=== PATIENT | male | born 1930 | race Caucasian/White ===

== ENCOUNTER 2018-12-03 15:20 | Emergency (ER) | payer MEDICARE, OTHER ==
[~2018-12-03] VITALS: Ht 162.6 cm; Wt 64.9 kg
[~2018-12-03 15:20] MED LIST: ASPI81CH PO; ATEN50; CLOP75 PO; DILTIAZEM 24HR240 M1 PO; FISH1000 PO; HYDACE5 PO; METO50; RISE5 PO; SPIHYD; ZESTRIL40 MG PO
[2018-12-03 16:03] LABS: BASOPHILS ABSOLUTE AUTO 0.03 K/mm3 (0.00-0.23); BASOPHILS PERCENT AUTO 0 % (0-2); EOSINOPHILS ABSOLUTE AUTO 0.06 K/mm3 (0.00-0.68); EOSINOPHILS PERCENT AUTO 1 % (0-6); Hematocrit 35.1 % (37.0-53.0); Hemoglobin 11.5 g/dL (13.5-17.5); IMMATURE GRAN ABSOLUTE AUTO 0.03 K/mm3 (0.00-0.10); IMMATURE GRAN PERCENT AUTO 0 % (0-1); LYMPHOCYTES ABSOLUTE AUTO 1.42 K/mm3 (0.84-5.20); LYMPHOCYTES PERCENT AUTO 16 % (21-46); MONOCYTES PERCENT AUTO 10 % (4-13); Mean Corpuscular HGB 29.2 pg (26.0-34.0); Mean Corpuscular HGB Conc 32.8 g/dL (31.5-36.5); Mean Corpuscular Volume 89 fL (80-100); Mean Platelet Volume 9.9 fL (9.1-12.4); NEUTROPHILS ABSOLUTE AUTO 6.67 K/mm3 (1.96-9.15); NEUTROPHILS PERCENT AUTO 73 % (41-73); Platelet Count 250 K/mm3 (150-400); RDW Standard Deviation 42.6 fL (35.1-46.3); Red Blood Cell Count 3.94 M/mm3 (4.30-5.90); White Blood Cell Count 9.11 K/mm3 (4.00-11.30)
[2018-12-03 16:19] LABS: International Normalized Ratio 1.03; Prothrombin Time Results 10.9 Sec (9.7-11.5)
[2018-12-03 16:26] LABS: Alanine Aminotransfer (ALT/SGP 14 U/L (12-78); Albumin, Blood 3.4 g/dL (3.4-5.0); Albumin/Globulin Ratio 0.8 (0.8-1.8); Alk Phos 69 U/L (50-136); Anion Gap 7 mmol/L (6-16); Aspartate Aminotrans (AST/SGOT 14 U/L (12-37); Bilirubin, Total 0.4 mg/dL (0.1-1.0); Blood Urea Nitrogen 22 mg/dL (8-24); Bun/Creatinine Ratio 27.2 (12.0-20.0); CO2, Blood 27 mmol/L (21-32); Calcium, Blood 8.9 mg/dL (8.5-10.1); Chloride, Blood 103 mmol/L (98-108); Creatinine, Blood 0.81 mg/dL (0.60-1.20); Globulin, Blood 4.3 g/dL (2.2-4.0); Glomerular Filtration Rate >60 (60-); Glucose, Blood 144 mg/dL (70-99); Sodium, Blood 137 mmol/L (136-145); Total Protein, Blood 7.7 g/dL (6.4-8.2)
[2019-02-22] MEDS ORDERED: FURO40 PO (11:13)
== END 2018-12-03 17:52 | disposition home or self-care (01) ==
LOC: ER 15:20
PROVIDERS: Physician Assistant
DX: H26.9 Unspecified cataract (principal); Z88.0 Allergy status to penicillin; Z88.2 Allergy status to sulfonamides; Z79.899 Other long term (current) drug therapy; Z87.891 Personal history of nicotine dependence
CPT/HCPCS: 36415; 70450; 80053; 85025; 85610; 85730; 93005; 93010; 99284-25

== ENCOUNTER 2018-12-28 09:28 | Day surgery (SDC) | payer MEDICARE, OTHER ==
[~2018-12-28] VITALS: Ht 165.1 cm; Wt 68.7 kg
[2018-12-28] MEDS ORDERED: Aspirin EC81 MG PO (10:30)
--- NOTE | 2018-12-28 10:38 | NUR ---
12/28/18 [id number] Celeste Stanton T/O AND SITE CHECK DONE
--- NOTE | 2018-12-28 11:53 | NUR ---
12/28/18 1153 Juliane Rocha COPIES OF INSTRUCTIONS, GAUZE AND BACITRACIN GIVEN WITH INSTRUCTIONS FOR USE
[2019-02-22] MEDS ORDERED: FURO40 PO (11:13)
== END 2018-12-28 11:45 | disposition home or self-care (01) ==
LOC: ORSCSDS 09:28
PROVIDERS: Otolaryngology
PROC: 03BS0ZX Excision of Right Temporal Artery, Open Approach, Diagnostic (ICD-10-PCS; principal; 2018-12-28 11:45)
DX: M31.6 Other giant cell arteritis (principal); Z87.891 Personal history of nicotine dependence; Z79.82 Long term (current) use of aspirin
CPT/HCPCS: 88305; 88313; J1100; J2250; J3010; J7120

== ENCOUNTER 2019-01-28 12:41 | Inpatient (IN) | payer MEDICARE, OTHER ==
[~2019-01-28] VITALS: Ht 162.6 cm; Wt 67.0 kg
[~2019-01-28 12:41] MED LIST changes: +Aspirin EC81 MG PO
[2019-01-28] MEDS ORDERED: TIAZAC PO (13:29)
[2019-01-28 14:16] LABS: BASOPHILS ABSOLUTE AUTO 0.03 K/mm3 (0.00-0.23); BASOPHILS PERCENT AUTO 0 % (0-2); EOSINOPHILS ABSOLUTE AUTO 0.05 K/mm3 (0.00-0.68); EOSINOPHILS PERCENT AUTO 0 % (0-6); Hematocrit 38.4 % (37.0-53.0); Hemoglobin 12.6 g/dL (13.5-17.5); IMMATURE GRAN ABSOLUTE AUTO 0.22 K/mm3 (0.00-0.10); IMMATURE GRAN PERCENT AUTO 2 % (0-1); LYMPHOCYTES ABSOLUTE AUTO 0.81 K/mm3 (0.84-5.20); LYMPHOCYTES PERCENT AUTO 7 % (21-46); MONOCYTES ABSOLUTE AUTO 0.53 K/mm3 (0.16-1.47); MONOCYTES PERCENT AUTO 4 % (4-13); Mean Corpuscular HGB 29.6 pg (26.0-34.0); Mean Corpuscular HGB Conc 32.8 g/dL (31.5-36.5); Mean Corpuscular Volume 90 fL (80-100); Mean Platelet Volume 10.6 fL (9.1-12.4); NEUTROPHILS ABSOLUTE AUTO 10.65 K/mm3 (1.96-9.15); NEUTROPHILS PERCENT AUTO 87 % (41-73); Platelet Count 156 K/mm3 (150-400); RDW Coefficient Variation 18.4 % (11.7-14.2); Red Blood Cell Count 4.26 M/mm3 (4.30-5.90); White Blood Cell Count 12.29 K/mm3 (4.00-11.30)
[2019-01-28 14:43] LABS: Alanine Aminotransfer (ALT/SGP 37 U/L (12-78); Albumin, Blood 3.1 g/dL (3.4-5.0); Albumin/Globulin Ratio 0.9 (0.8-1.8); Alk Phos 47 U/L (50-136); Anion Gap 6 mmol/L (6-16); Aspartate Aminotrans (AST/SGOT 19 U/L (12-37); Bilirubin, Total 0.8 mg/dL (0.1-1.0); Blood Urea Nitrogen 28 mg/dL (8-24); Bun/Creatinine Ratio 40.1 (12.0-20.0); CO2, Blood 30 mmol/L (21-32); Calcium, Blood 8.7 mg/dL (8.5-10.1); Chloride, Blood 105 mmol/L (98-108); Globulin, Blood 3.5 g/dL (2.2-4.0); Glomerular Filtration Rate >60 (60-); Glucose, Blood 153 mg/dL (70-99); Potassium, Blood 3.6 mmol/L (3.5-5.5); Sodium, Blood 141 mmol/L (136-145); Total Protein, Blood 6.6 g/dL (6.4-8.2); Troponin I 0.026 ng/mL (0.000-0.040)
[2019-01-28] MEDS ORDERED: CLOP75 PO (15:10)
--- NOTE | 2019-01-28 16:46 | NUR ---
PT ARRIVED TO THE ROOM AT APPROXIMATELY [id number]. PT ALERT AND ORIENTED, WAS ABLE TO TRANSFER INDEPENDENTLY WITH SBA. O2 SATURATION WAS 86% UPON ARRIVAL TO THE FLOOR. O2 INCREASED TO 4L ON NC AND O2 SATURATION INCREASED TO 88%. PT PLACED ON 2L OXIMIZER AND O2 SATURATION IMPROVED TO 94%. PT SOB WITH ACTIVITY. WILL CONTINUE TO MONITOR.
[2019-01-28] MEDS ORDERED: PRED20 PO (17:47)
--- NOTE | 2019-01-28 18:24 | NUR ---
SHIFT SUMMARY NO CHANGES TO REPORT SINCE PT ARRIVED TO THE FLOOR. PT REMAINS ALERT AND ORIENTED. DENIES PAIN. INCREASED RR AND EFFORT WITH ACTIVITY. PT TOLERATING FOOD WELL. VSS. WILL MONITOR UNTIL REPORT TO ONCOMING RN.
[2019-01-28] MEDS ORDERED: DILTIAZEM 24HR300 M2 PO (18:28)
[2019-01-29 04:55] LABS: BASOPHILS ABSOLUTE AUTO 0.01 K/mm3 (0.00-0.23); BASOPHILS PERCENT AUTO 0 % (0-2); EOSINOPHILS ABSOLUTE AUTO 0.02 K/mm3 (0.00-0.68); EOSINOPHILS PERCENT AUTO 0 % (0-6); Hematocrit 33.1 % (37.0-53.0); Hemoglobin 11.2 g/dL (13.5-17.5); IMMATURE GRAN ABSOLUTE AUTO 0.17 K/mm3 (0.00-0.10); IMMATURE GRAN PERCENT AUTO 2 % (0-1); LYMPHOCYTES ABSOLUTE AUTO 0.38 K/mm3 (0.84-5.20); LYMPHOCYTES PERCENT AUTO 4 % (21-46); MONOCYTES ABSOLUTE AUTO 0.38 K/mm3 (0.16-1.47); MONOCYTES PERCENT AUTO 4 % (4-13); Mean Corpuscular HGB 29.7 pg (26.0-34.0); Mean Corpuscular HGB Conc 33.8 g/dL (31.5-36.5); Mean Corpuscular Volume 88 fL (80-100); Mean Platelet Volume 10.7 fL (9.1-12.4); NEUTROPHILS PERCENT AUTO 91 % (41-73); Platelet Count 139 K/mm3 (150-400); RDW Coefficient Variation 17.7 % (11.7-14.2); RDW Standard Deviation 56.3 fL (35.1-46.3); Red Blood Cell Count 3.77 M/mm3 (4.30-5.90); White Blood Cell Count 10.56 K/mm3 (4.00-11.30)
[2019-01-29 05:20] LABS: Anion Gap 7 mmol/L (6-16); Blood Urea Nitrogen 27 mg/dL (8-24); Bun/Creatinine Ratio 38.1 (12.0-20.0); CO2, Blood 32 mmol/L (21-32); Calcium, Blood 8.2 mg/dL (8.5-10.1); Chloride, Blood 101 mmol/L (98-108); Creatinine, Blood 0.71 mg/dL (0.60-1.20); Glomerular Filtration Rate >60 (60-); Glucose, Blood 144 mg/dL (70-99); Potassium, Blood 3.3 mmol/L (3.5-5.5); Sodium, Blood 140 mmol/L (136-145)
--- NOTE | 2019-01-29 07:57 | NUR ---
SUMMARY WITH THIS AM VS PT SATS ON 2 L 84 %.DENIED SOB PT WAS REPOSITIONED,ENC CDB, INCREASED O2 TO 3 L WITH SATS 889-99% ENC CONTINUED CDB.
--- NOTE | 2019-01-29 16:53 | NUR ---
Mr. Jalloh was pleasantly dismissive of pastoral care at this time. I will remain available.
--- NOTE | 2019-01-29 18:31 | NUR ---
SHIFT SUMMARY PT HAS BEEN SLEEPING A LOT OF THE SHIFT. PT TOOK A SHOWER TODAY AND PT TOLERATED WELL. THIS RN DECREASED PT'S OXYGEN FROM 3 LITERS THIS AM TO 1 LITER VIA NC. PT'S OXYGEN SATURATION HAS BEEN 92%. PT HAS HAD NO ACUTE CHANGES OR COMPLAINTS THIS SHIFT. CALL LIGHT IN REACH. WILL CONTINUE TO MONITOR AND REPORT TO ONCOMING RN. BED ALARM ON FOR FALL RISK SAFETY.
--- NOTE | 2019-01-30 02:51 | NUR ---
PT IS ALERT AND PLEASANT, HARD OF HEARING BUT ABLE TO COMMUNICATE. vOIDS GOOD AMT OF CLEAR YELLOW URINE AND WEARS PULLUPS FOR DRIBBLING. ON FLUID RESTRICTION FOR CHF. 2 GM SODIUM DIET WITH 100% TAKEN. HAS [facility] LIST. DENIES PAIN OR ACUTE DISTRESS.
[2019-01-30 05:10] LABS: Anion Gap 4 mmol/L (6-16); Blood Urea Nitrogen 40 mg/dL (8-24); Bun/Creatinine Ratio 48.3 (12.0-20.0); CO2, Blood 34 mmol/L (21-32); Calcium, Blood 8.3 mg/dL (8.5-10.1); Chloride, Blood 101 mmol/L (98-108); Creatinine, Blood 0.83 mg/dL (0.60-1.20); Glomerular Filtration Rate >60 (60-); Glucose, Blood 112 mg/dL (70-99); Magnesium, Blood 2.1 mg/dL (1.6-2.4); Potassium, Blood 3.4 mmol/L (3.5-5.5); Sodium, Blood 139 mmol/L (136-145)
[2019-01-30] MEDS ORDERED: ACET325 PO (11:36)
[2019-01-30] MEDS ORDERED: CARV6.25 PO (11:41)
[2019-01-30] MEDS ORDERED: DILT120 (11:42)
[2019-01-30] MEDS ORDERED: [UNRECOGNIZED DRUG - OTHER] (11:44)
[2019-01-30] MEDS ORDERED: Potassium20 MEQ/11 PO (11:47)
--- NOTE | 2019-01-30 15:58 | NUR ---
DISCHARGE DISCHARGE MEDICATIONS AND INSTRUCTIONS EXPLAINED TO PATIENT. HE STATED UNDERSTADING. LOW SODIUM DIET AND FLUID RESTRICTION EXPLAINED. FOLLOW UP WITH PCP AND CARDIOLOGY SCHEDULED. HOME OXYGEN PROVIDED BY [facility]. IV REMOVED WITHOUT DIFFICULTY. BELONGINGS WITH PATIENT. PATIENT TRANSFERED VIA WHEELCHAIR TO PRIVATE VEHICLE.
[2019-02-22] MEDS ORDERED: FURO40 PO (11:13)
== END 2019-01-30 15:10 | disposition home health service (06) | DRG 291 ==
LOC: ER 12:41 → MEDS 15:27 → ENPENDDIS 01-30 11:09 → MEDS 01-30 15:10
PROVIDERS: Emergency Medicine; ADMIT Internal Medicine
DX: I11.0 Hypertensive heart disease with heart failure (principal); J96.01 Acute respiratory failure with hypoxia; I50.43 Acute on chronic combined systolic (congestive) and diastolic (congestive) heart failure; E87.6 Hypokalemia; M31.6 Other giant cell arteritis; I25.10 Atherosclerotic heart disease of native coronary artery without angina pectoris; I35.0 Nonrheumatic aortic (valve) stenosis; H54.40 Blindness, one eye, unspecified eye; Z51.5 Encounter for palliative care; Z86.73 Personal history of transient ischemic attack (TIA), and cerebral infarction without residual deficits; Z95.1 Presence of aortocoronary bypass graft; Z88.5 Allergy status to narcotic agent; Z88.2 Allergy status to sulfonamides; Z87.891 Personal history of nicotine dependence; Z79.02 Long term (current) use of antithrombotics/antiplatelets; Z79.899 Other long term (current) drug therapy
CPT/HCPCS: 36415; 71046; 80048; 80053; 83735; 83880; 84484; 85025; 93005; 93010; 94761; 96374; 97161; 97165; 97530; 97535; 99285-25; J1650; J1940; J7512

== ENCOUNTER 2019-02-23 07:10 | Day surgery (SDC) | payer OTHER, MEDICARE ==
[~2019-02-23] VITALS: Ht 162.6 cm; Wt 64.0 kg
[~2019-02-23 07:10] MED LIST changes: +ACET325 PO; +CARV6.25 PO; +DILT120; +DILTIAZEM 24HR300 M2 PO; +FURO40 PO; +PRED20 PO; +Potassium20 MEQ/11 PO; +TIAZAC PO; +[UNRECOGNIZED DRUG - OTHER]
--- NOTE | 2019-02-23 11:04 | NUR ---
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 JAIME BANDAGE REPLACED. NO OOZING OR BLEEDING NOTED. SITE VISULIZED BY RECOVER ROOM RN. JULIA.
--- NOTE | 2019-02-23 12:09 | NUR ---
MEDICATION GIVEN PER ORDER FOR HYPERTENSION.
--- NOTE | 2019-02-23 12:36 | NUR ---
2 cc air removed from TR band. No bleeding at site. Additional 6 cc air removed. No bleeding.
--- NOTE | 2019-02-23 12:50 | NUR ---
TO BATHROOM. TOLERATED WELL. DRESSED FOR DISCHARGE.
--- NOTE | 2019-02-23 13:29 | NUR ---
TR BAN REMOVED. SIGHT DRESSED WITH CLOTH DOT. IMMOBILIZER PLACED. NO BLEEDING AT SITE.
--- NOTE | 2019-02-23 13:55 | NUR ---
IV REMOVED INTACT. 2X2 COBAN AND MANUAL PRESSURE HELD.
--- NOTE | 2019-02-23 14:08 | NUR ---
DISCHARGED HOME VIA WHEELCHAIR. DAUGHTER DRIVING. LEFT ARM SLING APPLIED.
--- NOTE | 2019-02-23 14:10 | NUR ---
CD OF PROCEDURE SENT WITH PT.
== END 2019-02-23 14:22 | disposition home or self-care (01) ==
LOC: MHTC 07:10
DX: Z01.810 Encounter for preprocedural cardiovascular examination (principal); I25.10 Atherosclerotic heart disease of native coronary artery without angina pectoris; I11.0 Hypertensive heart disease with heart failure; I50.9 Heart failure, unspecified; I27.20 Pulmonary hypertension, unspecified; Z87.891 Personal history of nicotine dependence; Z86.73 Personal history of transient ischemic attack (TIA), and cerebral infarction without residual deficits; Z88.5 Allergy status to narcotic agent; Z88.8 Allergy status to other drugs, medicaments and biological substances; Z88.2 Allergy status to sulfonamides; Z79.52 Long term (current) use of systemic steroids; Z79.899 Other long term (current) drug therapy
CPT/HCPCS: 76937; 93457; 99152; 99153; C1769; C1894; J1644; J2250; J3010; J7030; Q9967

== ENCOUNTER 2019-04-16 11:31 | Emergency (ER) | payer OTHER, MEDICARE ==
[~2019-04-16] VITALS: Ht 165.1 cm; Wt 68.0 kg
[~2019-04-16 11:31] MED LIST changes: -PRED20 PO; +Prednisone10 MG PO
[2019-04-16 12:39] LABS: BASOPHILS ABSOLUTE AUTO 0.01 K/mm3 (0.00-0.23); BASOPHILS PERCENT AUTO 0 % (0-2); EOSINOPHILS ABSOLUTE AUTO 0.02 K/mm3 (0.00-0.68); EOSINOPHILS PERCENT AUTO 0 % (0-6); Hematocrit 40.4 % (37.0-53.0); Hemoglobin 12.3 g/dL (13.5-17.5); IMMATURE GRAN ABSOLUTE AUTO 0.16 K/mm3 (0.00-0.10); IMMATURE GRAN PERCENT AUTO 2 % (0-1); LYMPHOCYTES ABSOLUTE AUTO 0.39 K/mm3 (0.84-5.20); LYMPHOCYTES PERCENT AUTO 4 % (21-46); MONOCYTES ABSOLUTE AUTO 0.34 K/mm3 (0.16-1.47); MONOCYTES PERCENT AUTO 4 % (4-13); Mean Corpuscular HGB 31.5 pg (26.0-34.0); Mean Corpuscular HGB Conc 30.4 g/dL (31.5-36.5); Mean Corpuscular Volume 104 fL (80-100); Mean Platelet Volume 11.5 fL (9.1-12.4); NEUTROPHILS ABSOLUTE AUTO 8.42 K/mm3 (1.96-9.15); NEUTROPHILS PERCENT AUTO 90 % (41-73); Platelet Count 131 K/mm3 (150-400); RDW Coefficient Variation 15.1 % (11.7-14.2); RDW Standard Deviation 58.2 fL (35.1-46.3); White Blood Cell Count 9.34 K/mm3 (4.00-11.30)
[2019-04-16 12:49] LABS: Alanine Aminotransfer (ALT/SGP 295 U/L (12-78); Albumin, Blood 3.4 g/dL (3.4-5.0); Albumin/Globulin Ratio 1.1 (0.8-1.8); Alk Phos 68 U/L (50-136); Anion Gap 7 mmol/L (6-16); Aspartate Aminotrans (AST/SGOT 96 U/L (12-37); Bilirubin, Total 0.6 mg/dL (0.1-1.0); Blood Urea Nitrogen 49 mg/dL (8-24); Bun/Creatinine Ratio 50.1 (12.0-20.0); CO2, Blood 21 mmol/L (21-32); Calcium, Blood 8.9 mg/dL (8.5-10.1); Chloride, Blood 110 mmol/L (98-108); Creatinine, Blood 0.98 mg/dL (0.60-1.20); Glomerular Filtration Rate >60 (60-); Glucose, Blood 279 mg/dL (70-99); Potassium, Blood 5.3 mmol/L (3.5-5.5); Sodium, Blood 138 mmol/L (136-145); Total Protein, Blood 6.4 g/dL (6.4-8.2); Troponin I 0.076 ng/mL (0.000-0.040)
[2019-04-16] MEDS ORDERED: Lasix40 MG PO (13:41)
[2019-04-16] MEDS ORDERED: CLOP75 PO (14:23)
[2019-04-16] MEDS ORDERED: ALEN70 PO (14:25)
== END 2019-04-16 15:25 | disposition home or self-care (01) ==
LOC: ER 11:31
PROVIDERS: Physician Assistant
DX: I11.0 Hypertensive heart disease with heart failure (principal); I50.9 Heart failure, unspecified; I25.10 Atherosclerotic heart disease of native coronary artery without angina pectoris; Z88.5 Allergy status to narcotic agent; Z88.2 Allergy status to sulfonamides; Z88.8 Allergy status to other drugs, medicaments and biological substances; Z79.899 Other long term (current) drug therapy; Z79.52 Long term (current) use of systemic steroids; Z95.1 Presence of aortocoronary bypass graft
CPT/HCPCS: 36415; 71046; 80053; 83880; 84484; 85025; 93005; 93010; 96374; 99284-25; J1940